=== PATIENT | male | born 1960 | race Caucasian/White ===

== ENCOUNTER 2019-01-08 15:07 | Emergency (ER) | payer MEDICARE ==
[2019-01-08] MEDS ORDERED: RX INFO: IV CONTRAST WAS GIVEN 1 EACH MISC MISCELLANE PRN (15:23)
[2019-01-08] MEDS ORDERED: SODIUM CHLORIDE 0.9% 2,000 ML IV ONE (15:24)
[2019-01-08] MEDS ORDERED: LIDOCAINE/EPINEPHR/TETRACAINE 5 ML BOTTLE TOPICAL ONE (15:24)
[2019-01-08] MEDS ORDERED: MORPHINE SULFATE 4 MG/ML SYRINGE IVP STA (15:24)
--- NOTE | 2019-01-08 15:30 | ED ---
Wound/Laceration HPI - General Chief Complaint: Wound/Laceration Stated Complaint: Laceration on chest Time Seen by Provider: 01/08/19 15:15 Source: patient, EMS, RN notes reviewed, old records reviewed Mode of arrival: EMS Limitations: no limitations - History of Present Illness Initial Comments: This Patient is a 58-year-old male who presents emergency department today after cutting piece of metal with a grinding wheel. He reports that the grinding wheel "exploded and came off. He reports a piece of the grinding wheel hit his chest. He complains of a laceration over the left anterior chest. He does report he is having some pain. He denies any pain with taking a deep breath. Patient states that he has a small abrasion over his left thigh. He denies any other injuries or arms or abdomen. - Related Data Previous Rx's Medication Instructions Recorded Cephalexin [Keflex] 500 mg PO Q6HR 3 Days #12 cap 01/08/19 Allergies Allergy/AdvReac Type Severity Reaction Status Date / Time tetanus and diphtheria Allergy Swelling Verified 01/08/19 15:26 toxoids Tetanus Vaccines and Toxoid Allergy Swelling Verified 01/08/19 15:26 Review of Systems ROS Statement: Those systems with pertinent positive or pertinent negative responses have been documented in the HPI. ROS Other: All systems not noted in ROS Statement are negative. Past Medical History Past Medical History: Hypertension History of Any Multi-Drug Resistant Organisms: None Reported Past Surgical History: Orthopedic Surgery Additional Past Surgical History / Comment(s): Left knee replacement Past Psychological History: Depression Smoking Status: Current every day smoker Past Alcohol Use History: None Reported Past Drug Use History: None Reported General Exam - General Exam Comments Initial Comments: 58-year-old male. Alert and oriented. No significant distress. Limitations: no limitations General appearance: alert, in no apparent distress Head exam: Present: atraumatic, normocephalic, normal inspection Eye exam: Present: normal appearance, PERRL, EOMI. Absent: scleral icterus, conjunctival injection, periorbital swelling ENT exam: Present: normal exam, mucous membranes moist Neck exam: Present: normal inspection. Absent: tenderness, meningismus, lymphadenopathy Respiratory exam: Present: normal lung sounds bilaterally, other (Patient has a 6cm laceration, linear over the chest wall.). Absent: respiratory distress, wheezes, rales, rhonchi, stridor Cardiovascular Exam: Present: regular rate, normal rhythm, normal heart sounds. Absent: systolic murmur, diastolic murmur, rubs, gallop, clicks GI/Abdominal exam: Present: soft, normal bowel sounds. Absent: distended, tenderness, guarding, rebound, rigid Extremities exam: Present: normal inspection, full ROM, normal capillary refill. Absent: tenderness, pedal edema, joint swelling, calf tenderness Back exam: Present: normal inspection Neurological exam: Present: alert, oriented X3, CN II-XII intact Psychiatric exam: Present: normal affect, normal mood Skin exam: Present: warm, dry, intact, normal color. Absent: rash Course Vital Signs 01/08/19 01/08/19 01/08/19 15:09 15:50 16:55 Temperature 98.6 F Pulse Rate 114 H 100 97 Respiratory 18 17 16 Rate Blood Pressure 130/78 124/86 126/87 O2 Sat by Pulse 97 99 97 Oximetry 01/08/19 01/08/19 18:10 18:23 Temperature 98.0 F 98.0 F Pulse Rate 80 80 Respiratory 18 19 Rate Blood Pressure 101/62 101/62 O2 Sat by Pulse 96 96 Oximetry - Reevaluation(s) Reevaluation #1: 01/08/19 15:[address] Kaur, patient not P1 or P2 at this time. Reevaluation #2: 01/08/19 16:28 I discussed the patient's risk and benefit have tetanus. He is stating that he's had a bad ALLERGIC reaction and causes her to swell. Discusses localized ALLERGIC reaction and I would recommend so getting a tetanus but he continues to refuse. Procedures - Laceration Laceration #1 Indication: laceration Site: chest Size (cm): 6 Description: linear Depth: involves muscle layer Anesthetic Used: lidocaine 1% Anesthesia Technique: local infiltration Amount (mls): 6 Pre-repair: wound explored, irrigated extensively Type of Sutures: nylon, vicryl Size of Sutures: 5-0 Number of Sutures: 12 Technique: simple, interrupted Patient Tolerated Procedure: well, no complications Medical Decision Making - Medical Decision Making This is a 58-year-old male presents today with chest laceration after a metal plate in his chest. Patient is 6 cm laceration. Patient's laceration was thoroughly irrigated, and closed with sutures with intermittent sutures. Nay ent at this time was given a tetanus shot. We'll put the Patient on due to the dirty wound. CT of the chest was negative for any penetrating trauma just laceration. Discussed Patient follow-up with her his PCP. Discussed monitoring for infection. - Lab Data Result diagrams: 01/08/19 15:20 01/08/19 15:20 Lab Results 01/08/19 01/08/19 01/08/19 Range/Units 15:20 15:20 15:20 WBC 8.9 (3.8-10.6) k/uL RBC 4.72 (4.30-5.90) m/uL Hgb 13.8 (13.0-17.5) gm/dL Hct 41.3 (39.0-53.0) % MCV 87.4 (80.0-100.0) fL MCH 29.3 (25.0-35.0) pg MCHC 33.5 (31.0-37.0) g/dL RDW 13.7 (11.5-15.5) % Plt Count 226 (150-450) k/uL Neutrophils % 76 % Lymphocytes % 15 % Monocytes % 5 % Eosinophils % 1 % Basophils % 1 % Neutrophils # 6.8 (1.3-7.7) k/uL Lymphocytes # 1.4 (1.0-4.8) k/uL Monocytes # 0.4 (0-1.0) k/uL Eosinophils # 0.1 (0-0.7) k/uL Basophils # 0.1 (0-0.2) k/uL PT 10.6 (9.0-12.0) sec INR 1.0 (<1.2) APTT 20.4 L (22.0-30.0) sec Sodium 140 (137-145) mmol/L Potassium 4.1 (3.5-5.1) mmol/L Chloride 102 (98-107) mmol/L Carbon Dioxide 26 (22-30) mmol/L Anion Gap 12 mmol/L BUN 25 H (9-20) mg/dL Creatinine 0.99 (0.66-1.25) mg/dL Est GFR (CKD-EPI)AfAm >90 (>60 ml/min/1.73 sqM) Est GFR (CKD-EPI)NonAf 84 (>60 ml/min/1.73 sqM) Glucose 90 (74-99) mg/dL Calcium 9.4 (8.4-10.2) mg/dL Total Bilirubin 0.6 (0.2-1.3) mg/dL AST 29 (17-59) U/L ALT 40 (21-72) U/L Alkaline Phosphatase 83 (38-126) U/L Troponin I (0.000-0.034) ng/mL Total Protein 7.5 (6.3-8.2) g/dL Albumin 4.4 (3.5-5.0) g/dL 01/08/19 Range/Units 15:26 WBC (3.8-10.6) k/uL RBC (4.30-5.90) m/uL Hgb (13.0-17.5) gm/dL Hct (39.0-53.0) % MCV (80.0-100.0) fL MCH (25.0-35.0) pg MCHC (31.0-37.0) g/dL RDW (11.5-15.5) % Plt Count (150-450) k/uL Neutrophils % % Lymphocytes % % Monocytes % % Eosinophils % % Basophils % % Neutrophils # (1.3-7.7) k/uL Lymphocytes # (1.0-4.8) k/uL Monocytes # (0-1.0) k/uL Eosinophils # (0-0.7) k/uL Basophils # (0-0.2) k/uL PT (9.0-12.0) sec INR (<1.2) APTT (22.0-30.0) sec Sodium (137-145) mmol/L Potassium (3.5-5.1) mmol/L Chloride (98-107) mmol/L Carbon Dioxide (22-30) mmol/L Anion Gap mmol/L BUN (9-20) mg/dL Creatinine (0.66-1.25) mg/dL Est GFR (CKD-EPI)AfAm (>60 ml/min/1.73 sqM) Est GFR (CKD-EPI)NonAf (>60 ml/min/1.73 sqM) Glucose (74-99) mg/dL Calcium (8.4-10.2) mg/dL Total Bilirubin (0.2-1.3) mg/dL AST (17-59) U/L ALT (21-72) U/L Alkaline Phosphatase (38-126) U/L Troponin I <0.012 (0.000-0.034) ng/mL Total Protein (6.3-8.2) g/dL Albumin (3.5-5.0) g/dL 01/08/19 15:40 EKG performed at 1530 fracture sinus tachycardia and nonspecific T-wave abnormality. Abnormal EKG. Ventricular rate of 111 bpm. SD interval is 1:30 milliseconds. QRS duration is 82 ms. QT QTc is 328/[address] elevation. - Radiology Data Radiology results: report reviewed Soft tissue laceration deformity. Minimal atelectasis in the lung bases. No fractures. CT findings show patchy atelectasis in lung bases heart size is normal. No pleural effusion or pneumothorax. No pericardial effusion no mediastinal myopathy. Thoracic aorta is intact. Upper soft abdominal tissues appear intact. Soft tissue laceration deformity at the left mid chest wall. No foreign body. Ribs are intact. Thoracic spines intact. Disposition Clinical Impression: Laceration of chest wall, Abrasion of leg, Chest wall contusion Disposition: HOME SELF-CARE Condition: Good Instructions (If sedation given, give patient instructions): Laceration (ED) Additional Instructions: Please return to the emergency room in 8-10 days to have sutures removed. Please leave wound covered for the first 24-48 hours and then leave open to air after that time. Please use clean soap and water to clean the suture area to prevent scabbing over the top of your sutures. Please watch for any signs of infection which may include but not limited to increased pain, swelling, redness, fever or chills. Please return to the emergency room if any signs of infection do occur. Please return to the emergency room for any other concerns or complications. Prescriptions: Cephalexin [Keflex] 500 mg PO Q6HR 3 Days #12 cap Is patient prescribed a controlled substance at d/c from ED?: No Referrals: Nonstaff,Physician [Primary Care Provider] - 1-2 days Yanet Ball MD [STAFF PHYSICIAN] - 1-2 days Time of Disposition: 17:38
[2019-01-08] MEDS ORDERED: LIDOCAINE 1% INJ 10MG/ML (20 ML MDV) SQ ONE (15:37)
[2019-01-08] MEDS: DIPH,PERTUS(ACELL)TETVAC-LF 0.5 ML VIAL IM ONE ×2 (15:42→16:49)
[2019-01-08 16:03] LABS: ALT 40 U/L (21-72); AST 29 U/L (17-59); African American GFR (CKD) >90 (>60 ml/min/1.73 sqM); Albumin 4.4 g/dL (3.5-5.0); Alkaline Phosphatase 83 U/L (38-126); Anion Gap 12 mmol/L; Blood Urea Nitrogen 25 mg/dL (9-20); Calcium 9.4 mg/dL (8.4-10.2); Carbon Dioxide 26 mmol/L (22-30); Chloride 102 mmol/L (98-107); Glucose 90 mg/dL (74-99); Potassium 4.1 mmol/L (3.5-5.1); Sodium 140 mmol/L (137-145); Total Bilirubin 0.6 mg/dL (0.2-1.3); Total Protein 7.5 g/dL (6.3-8.2)
--- NOTE | 2019-01-08 16:12 | CT ---
EXAMINATION TYPE: CT chest w con DATE OF EXAM: 01/08/2019 COMPARISON: None HISTORY: Patient was using a cutting wheel when it exploded, hitting him on the left side of chest. L aceration observed. CT DLP: 515.6 mGycm Automated exposure control for dose reduction was used. CONTRAST: CT scan of the chest is performed with IV Contrast, patient injected with 100 mL of Isovue 300. FINDINGS: There is some patchy atelectasis at the lung bases. Heart size is normal. There is no pleural effusio n or pneumothorax. There is no pericardial effusion. There is no mediastinal adenopathy. Thoracic aor ta appears intact. There are no hilar masses. Upper abdominal soft tissues appear intact. There is so ft tissue laceration deformity on the left mid anterior chest wall. I see no sign of a foreign body. The ribs appear intact. Thoracic spine is intact. IMPRESSION: Soft tissue laceration deformity. Minimal atelectasis at the lung bases. No fracture.
[2019-01-08 16:24] LABS: Basophils # (A) 0.1 k/uL (0-0.2); Basophils % (A) 1 %; Eosinophils # (A) 0.1 k/uL (0-0.7); Eosinophils % (A) 1 %; HCT 41.3 % (39.0-53.0); HGB 13.8 gm/dL (13.0-17.5); Lymphocytes # (A) 1.4 k/uL (1.0-4.8); Lymphocytes % (A) 15 %; MCH 29.3 pg (25.0-35.0); MCHC 33.5 g/dL (31.0-37.0); MCV 87.4 fL (80.0-100.0); Mean Platelet Volume 8.1; Monocytes # (A) 0.4 k/uL (0-1.0); Monocytes % (A) 5 %; Neutrophils # (A) 6.8 k/uL (1.3-7.7); Neutrophils % (A) 76 %; Platelet Count 226 k/uL (150-450); RBC 4.72 m/uL (4.30-5.90); RDW 13.7 % (11.5-15.5); WBC 8.9 k/uL (3.8-10.6)
[2019-01-08 16:59] LABS: Prothrombin Time 10.6 sec (9.0-12.0)
[2019-01-08 17:06] LABS: Partial Thromboplastin Time 20.4 sec (22.0-30.0)
[2019-01-08 18:24] VITALS: BP 101/62; PULSE 80; RESP 19; TEMP 98
== END 2019-01-08 18:11 | disposition home or self-care (01) ==
LOC: EC 15:07
DX: S21.112A Laceration without foreign body of left front wall of thorax without penetration into thoracic cavity, initial encounter (principal); S70.312A Abrasion, left thigh, initial encounter; F17.200 Nicotine dependence, unspecified, uncomplicated; Z88.7 Allergy status to serum and vaccine; Z23 Encounter for immunization; Z96.652 Presence of left artificial knee joint; W22.8XXA Striking against or struck by other objects, initial encounter; Y93.89 Activity, other specified; Y92.009 Unspecified place in unspecified non-institutional (private) residence as the place of occurrence of the external cause
CPT/HCPCS: 99285; 90471; 96374; 96361 ×2; 36415; 93005; 80053; 84484; 85025; 85610; 85730; 71260; 90715; J2270; J2001; Q9967

== ENCOUNTER 2022-02-20 05:57 | Day surgery (SDC) | payer MEDICARE ==
--- NOTE | 2022-02-19 09:01 | P.HPOR ---
History of Present Illness H&P Date: 02/19/22 Chief Complaint: Right knee pain The patient's a 61-year-old male who presents with progressive right knee pain for the past several years worsening recently. He is having medial pain with weightbearing activities. He is having a difficult time getting up from a seated position. He does use a cane. He's tried medications in addition to previous injections with only partial temporary relief. Review of Systems As per HPI Past Medical History Past Medical History: Hypertension, Osteoarthritis (OA) Additional Past Medical History / Comment(s): vertigo,back pain, lft upper leg muscle atrophy History of Any Multi-Drug Resistant Organisms: None Reported Past Surgical History: Hernia Repair, Orthopedic Surgery Additional Past Surgical History / Comment(s): Left knee replacement and revision Lft Knee arthroscopy x2 Lft great toe joint surgery, umbilical hernia repair Past Anesthesia/Blood Transfusion Reactions: No Reported Reaction Smoking Status: Vaper Medications and Allergies Home Medications Medication Instructions Recorded Confirmed Type ARIPiprazole 10 mg PO DAILY 02/18/22 02/18/22 History Atorvastatin [Lipitor] 40 mg PO HS 02/18/22 02/18/22 History Fluticasone Nasal [place] [Flonase 1 spray EA NOSTRIL BID 02/18/22 02/18/22 History Nasal [place]] Metoprolol Succinate (ER) [Toprol 25 mg PO DAILY 02/18/22 02/18/22 History Xl] Omeprazole 20 mg PO DAILY 02/18/22 02/18/22 History Venlafaxine HCl 75 mg PO BID 02/18/22 02/18/22 History oxyCODONE-APAP 10-325MG [Percocet 1 tab PO Q6HR PRN 02/18/22 02/18/22 History 10-325 mg] Allergies Allergy/AdvReac Type Severity Reaction Status Date / Time No Known Allergies Allergy Verified 02/19/22 08:26 Physical Examination - Knee right Appearance: ecchymosis Effusion grade: grade 2 Varus alignment in stance: 10 degrees Tenderness with palpation: medial Pain: with flexion Gait: limping ROM: extension: -10 degrees ROM: flexion: 120 degrees Crepitus with motion: Yes Strength: extension: 5/5 Strength: flexion: 5/5 Meniscal tests: medial joint line pain: positive Results The patient is a well-developed well-nourished male approximately 5 foot 11, 201 pounds of endomorphic habitus. HEENT exam is nonfocal, neck is supple. He has painless passive motion of the right hip. Straight leg raise is negative. His distal neurovascular exam appears intact right lower extremity. - Diagnostic results Knee x-ray: image reviewed (3 views the right knee obtaining office show severe medial and patellofemoral compartment narrowing with subchondral sclerosis and b one-on-bone changes.) Assessment and Plan Assessment: Right knee severe medial and patellofemoral compartment osteoarthrosis Plan: I talked to the patient at length regarding his condition along with treatment options. At this point is quite limited because of pain related to his osteoarthrosis despite conservative measures. After thorough discussion he opted to proceed with surgery. We will plan to proceed with right total knee arthroplasty. Risks and benefits were discussed at length in layman's terms. We'll institute DVT prophylaxis postoperatively. Time with Patient: Less than 30
[~2022-02-20 05:57] MED LIST: ACETAMINOPHEN TAB 500 MG TAB PO PRN; DEXAMETHASONE SOD PHOSPHATE 4 MG/ML 1 ML VIAL IV ONE; MELOXICAM 7.5 MG TAB PO PRN; MIDAZOLAM 2 MG/2 ML VIAL IV PRN; SCOPOLAMINE 1 MG/72 HR PATCH TRANSDERM ONE; TRANEXAMIC ACID IN NACL,ISO-OS 1,000 MG in SALINE 1 100ML.BAG IVPB PRN
[2022-02-20] MEDS: LACTATED RINGERS 1,000 ML IV SCH ×2 (06:38→07:48)
[2022-02-20] MEDS: ONDANSETRON 4 MG/2 ML VIAL IVP ONE ×2 (07:06→17:11)
[2022-02-20] MEDS ORDERED: PROPOFOL 10 MG/ML 20 ML VIAL IV ONE (07:47)
[2022-02-20] MEDS ORDERED: ROPIVACAINE 5 MG/ML 30 ML VIAL ONE (07:47)
[2022-02-20] MEDS ORDERED: MIDAZOLAM 2 MG/2 ML VIAL ONE (07:47)
[2022-02-20] MEDS ORDERED: SODIUM CHLORIDE 0.9% (PF) 10 ML VIAL ONE (07:47)
[2022-02-20] MEDS ORDERED: TRANEXAMIC ACID IN NACL,ISO-OS 1,000 MG/100 ML BAG ONE (07:47)
[2022-02-20] MEDS ORDERED: ceFAZolin 1,000 MG in SODIUM CHLORIDE 0.9% 1,000 ML IRRIGATION ONE (08:19)
[2022-02-20] MEDS ORDERED: ROPIVACAINE 0.2%-NS ON-Q PUMP 1,090 MG, EMPTY PAIN BALL 1 EACH MISCELLANE PRN (08:27)
--- NOTE | 2022-02-20 08:29 | P.ANPRN ---
Procedure Note - Anesthesia - Nerve Block Performed Right Adductor Canal Time Out Performed: Yes (:18) Date of Procedure: 02/20/22 Procedure Start Time: Procedure Stop Time: Location of Patient: PreOp Indication: Acute Post-Operative Pain, Requested by Surgeon (Dr Deo) Sedation Type: Sedate with meaningful contact maintained Preparation: Sterile Prep, Sterile Dressing Position: Supine Catheter: Indwelling Needle Types: Pajunk Needle Gauge: 21 Ultrasound used to visualize needle placement: Yes Ultrasound used to observe medication spread: Yes Injectate: 0.5% Ropivacaine (see comment for volume) (15cc) Blood Aspirated: No Pain Paresthesia on Injection Noted: No Resistance on Injection: Normal Image Stored and Saved: Yes Events: Uneventful and Well Tolerated
--- NOTE | 2022-02-20 08:31 | P.ANPRN ---
Procedure Note - Anesthesia - Nerve Block Performed Right iPack Time Out Performed: Yes Date of Procedure: 02/20/22 Procedure Start Time: 07:28 Procedure Stop Time: 07:34 Location of Patient: PreOp Indication: Acute Post-Operative Pain, Requested by Surgeon (Dr Doe) Sedation Type: Sedate with meaningful contact maintained Preparation: Sterile Prep Position: Supine Catheter: None Needle Types: Pajunk Needle Gauge: 21 Ultrasound used to visualize needle placement: Yes Ultrasound used to observe medication spread: Yes Injectate: 0.5% Ropivacaine (see comment for volume) (15cc +5cc PF Normal saline) Blood Aspirated: No Pain Paresthesia on Injection Noted: No Resistance on Injection: Normal Image Stored and Saved: Yes Events: Uneventful and Well Tolerated
[2022-02-20] MEDS ORDERED: NALOXONE 0.4 MG/ML 1 ML VIAL IV PRN (09:30)
[2022-02-20] MEDS ORDERED: HYDROcodone/APAP 5-325MG 1 EACH TAB PO PRN (09:30)
--- NOTE | 2022-02-20 09:56 | P.OP ---
Date of Procedure: 02/20/22 Preoperative Diagnosis: Right knee severe tricompartmental osteoarthrosis Postoperative Diagnosis: Same Procedure(s) Performed: Right total knee arthroplastycementedcruciate retaining Implants: [employer] journey 2 size 7 cemented femoral component, size 6 cemented tibial component, 9 mm articular surface, 35 mm cemented patellar component. This is a cruciate retaining implant. Anesthesia: regional, spinal Surgeon: Kalpesh Doe Sign Maintenance #1: Randy Muse Estimated Blood Loss (ml): 50 Pathology: other (Bone fragments) Condition: stable Disposition: PACU Indications for Procedure: The patient's a 61-year-old male who presents with progressive right knee pain secondary to osteoarthrosis despite conservative measures. A discussion of the risks and benefits of operative intervention versus continued conservative me asures was made with the patient. He opted to proceed with surgery. Operative risks to include infection, neurovascular injury, development of blood clots, possible component loosening/failure need for subsequent procedures was discussed. Informed consent was obtained. Operative Findings: As below Description of Procedure: The patient was brought to the operating room, and after induction of spinal anesthesia the right lower extremity was prepped and draped in a normal fashion. The tourniquet was inflated to 270 mmHg. A longitudinal incision extending 3 finger breaths above the superior pole of the patella extending to the medial aspect the tibial tubercle was then made. The skin and subcutaneous tissues were divided sharply. Electrocautery was used for hemostasis. A medial parapatellar arthrotomy was then performed. The medial soft tissues to include the superficial and deep portions of the medial collateral ligament as well as the medial hamstring tendons were elevated subperiosteally. The proximal medial tibia osteophytes were carefully removed. The patella was everted. The knee was flexed. A portion of the retropatellar fat pad was excised sharply. The anterior cruciate ligament was sacrificed. A starting hole was made in the distal femur 1 cm anterior to the posterior cruciate origin. An intramedullary femoral guide was gently inserted planning on 5 valgus distal cut with 9 mm distal resection. The cutting block was pinned in place. The distal cut was then made. The posterior referencing sizing guide was utilized. 3 of external rotation was built into the system and verified off the trans- epicondylar axis and the posterior condyles. I felt size 7 was most appropriate. The cutting block was pinned in place. The anterior, posterior, and chamfer cuts were then made. The bone fragments were removed. A sulcus cut was then made with the appropriate guide. The trial size 7 femoral component was then placed and was fully seated. There was good anterior to posterior and medial to lateral fit. The distal peg holes were then drilled. The trial component was then removed. Attention was then paid towards preparing the proximal tibia. An extra medullary guide was utilized in line with the tibial shaft and second metatarsal distally. A 3 posterior slope was planned. I jania nned on 2 mm resection from the medial compartment. The cutting block was pinned in place. The proximal tibial cut was then made. The bone was removed in one fragment. The remnants of the medial and lateral menisci were excised the capsule junction with electrocautery. The tibia sized most appropriately at size 6. The posterior osteophytes off the distal femur were carefully removed with a curved osteotome. The trial tibial and femoral components were placed along with a 9 millimeters articular surface. I was able to obtain full flexion and extension with good stability with varus and valgus stress. After several flexion and extension cycles, the tibial rotation was marked with electrocautery in line with the medial one third of the tibial tubercle. Attention was then paid towards preparing the patella. A patella reamer was utilized taking this down to 14 mm of bone stock. A good flush cut was made. The patella sized most appropriately at 35 millimeters. The peg holes were then drilled. The trial component was placed. The knee was taken through a range of motion. I had good patellofemoral tracking with no hands technique. The trial components were then removed. The tibia was prepared in the appropriate rotation with appropriate drill and keel punch. The flexion and extension gaps were checked and felt to be symmetric. The posterior soft tissues were injected with ropivacaine. The bony surfaces were prepared with pulsatile lavage and dried. The deep tibial component was then cemented in place and was fully seated. Excess cement was removed. The femoral component was cemented in place and was fully seated. Again excess cement was removed. The trial 9 millimeters surface was then inserted in the knee was put in full extension. The patella component was cemented in place. After the cement had sufficiently hardened, the knee was again taken through a range of motion. Again there was good stability in flexion and extension with varus and valgus stress. The trial articular surface was then removed. The final articular surface was placed and was impacted. Care was taken to avoid any soft tissue interposition. Pulsatile lavage was again utilized. The tourniquet was deflated with approximately 60 minutes total tourniquet time. There was minimal drainage therefore a deep drain was not placed. The medial parapatellar arthrotomy was then closed with #2 Ethibond suture. The subcutaneous tissues were reapproximated interrupted 2-0 Vicryl sutures. The skin was reapproximated with 3-0 subarticular strata fix suture. Skin tape and adhesive was applied. A sterile dressing was applied. The patient was then awoken from sedation and transferred to recovery room in good condition. Blood loss was estimated at 50 milliliters. No complications were incurred. Sponge and needle counts were correct at the end the case. Randy BROOKS assisted during the major components this case to include exposure, bone resection, and implantation.
--- NOTE | 2022-02-20 10:27 | XR ---
EXAMINATION TYPE: XR knee limited RT DATE OF EXAM: 02/20/2022 COMPARISON: 11/29/2020 HISTORY: 61-year-old male evaluation for postoperative abnormality in alignment TECHNIQUE: 2 views FINDINGS: Images show placement of right total knee arthroplasty. Both distal femoral and proximal tibial compo nents of the prosthesis are well seated without prosthetic fracture. Anterior soft tissue swelling wi th scattered soft tissue air as well as small foci of intra-articular air and small joint effusion re lated to recent operation. Alignment grossly anatomic. IMPRESSION: Uncomplicated postoperative appearance right total knee arthroplasty.
[2022-02-20] MEDS: HYDROmorphone 0.5 MG/0.5 ML SYRINGE IVP PRN ×5 (10:43→16:00)
[2022-02-20] MEDS ORDERED: KETOROLAC 15 MG/ML 1 ML VIAL IVP ONE (11:02)
[2022-02-20] MEDS ORDERED: LACTATED RINGERS 1,000 ML IV ONE (11:57)
[2022-02-20] MEDS: oxyCODONE-APAP 10-325MG 1 EACH TAB PO PRN ×2 (13:54→21:38)
[2022-02-20] MEDS: HYDROmorphone 1 MG/ML 1 ML SYRINGE IVP PRN ×2 (18:27→22:53)
[2022-02-20] MEDS: HYDROcodone/APAP 7.5-325MG 1 EACH TAB PO PRN (19:32)
[2022-02-20] MEDS ORDERED: SENNOSIDES-DOCUSATE SODIUM 1 EACH TAB PO SCH (21:00)
[2022-02-21] MEDS: HYDROcodone/APAP 7.5-325MG 1 EACH TAB PO PRN ×2 (01:05→07:15)
[2022-02-21 01:09] VITALS: RESP 17
[2022-02-21] MEDS: HYDROmorphone 1 MG/ML 1 ML SYRINGE IVP PRN ×2 (02:08→05:30)
[2022-02-21] MEDS: oxyCODONE-APAP 10-325MG 1 EACH TAB PO PRN ×2 (03:39→09:32)
--- NOTE | 2022-02-21 07:53 | P.PN ---
Progress Note - Text The patient is status post right adductor canal catheter placement. The catheter was placed for postoperative pain control, status post total right knee arthroplasty. Ropivacaine 0.2% is infusing at 8 mLs per hour. The patient has no complaints of right lower extremity numbness or weakness. Patient's VAS score is5-6-10. Patient does have some posterior knee and anterior knee pain.The catheter doesn't provide coverage to the posterior compartment of the knee. Assessment: Patient's adductor canal catheter is in place and working adequately. Plan: continue infusion and adjust it as needed.
[2022-02-21 07:55] VITALS: BP 158/84; PULSE 125; TEMP 98.9
--- NOTE | 2022-02-21 08:59 | P.PN ---
Subjective Progress Note Date: 02/21/22 Principal diagnosis: status post right total knee arthroplasty Patient evaluated at bedside. Increase in pain noted overnight, improvement this morning. Denies headaches, lightheadedness, chest pain or shortness of breath. He is urinating with no difficulties. Objective - Vital Signs Vital signs: Vital Signs Temp 98.9 F 02/21/22 07:54 Pulse 125 H 02/21/22 07:54 Resp 17 02/21/22 07:54 BP 158/84 02/21/22 07:54 Pulse Ox 94 L 02/21/22 07:54 FiO2 Intake & Output 02/20/22 02/21/22 02/21/22 18:59 06:59 18:59 Intake Total 1051 210 Output Total 50 Balance 1001 210 Weight 93.1 kg Intake: IV 1051 Intake, IV Titration 210 Amount Lactated Ringers 1,000 ml 160 @ 20 mls/hr IV .Q24H [facility] Rx#:[id number] ceFAZolin 2 gm In Sodium 50 Chloride 0.9% 50 ml @ 100 mls/hr IVPB Q8HR [facility] Rx# :[id number] Output: Estimated Blood Loss 50 Other: Voiding Method Toilet Toilet # Voids 1 6 - Exam Right lower extremity: Incision is clean, dry, and intact. The [exofin fusion tape] is in good condition. [There is minimal soft tissue swelling and ecchymosis surrounding the medial and lateral aspects of the incision.] Calf is soft, no tenderness with palpation. Plantar flexion, dorsiflexion, EHL, FHL are intact. Sensory exam to light touch throughout the extremity is intact, [dorsal pedis pulses 2+.] Assessment and Plan Assessment: Postoperative day #1 status post right total knee arthroplasty Plan: Pain control, he will resume his Percocet after discharge, also prescribed Driver 7.5 mg/325 mg DVT prophylaxis, aspirin 81 milligrams twice a day for 1 month Wound care instructions discussed, this to include icing and elevating/ showering Therapy and nursing after discharge Medical recommendations Discharge planning: Stable for discharge home today Time with Patient: Less than 30
[2022-02-21] MEDS ORDERED: RIVAROXABAN 10 MG TAB PO SCH (09:00)
--- NOTE | 2022-02-21 09:02 | P.DS ---
Providers Date of admission: 02/20/2022 Expected date of discharge: 02/21/22 Attending physician: Kalpesh Doe Consults: 02/20/22 09:33 Consult Physician Routine Consulting Provider: Donato Trevino Consult Reason/Comments: Medical Management s/p right total knee arthroplasty Do you want consulting provider notified?: Yes Primary care physician: Ivy Mark Hospital Course: Date of admission: 02/20/2022 Date of discharge: 02/21/2022 Admission diagnosis: Status post right total knee arthroplasty Discharge diagnosis: Same Attending physician: Dr. Doe Surgical procedures: Right total knee arthroplasty Brief history: Patient is a 61-year-old male with a history of progressive primary right knee osteoarthritis. At this point patient has failed conservative treatment measures and has opted to proceed with a elective right total knee arthroplasty. Hospital course: Details of patient's surgery can be found in operative report. Patient tolerated the procedure well and was subsequently transported to orthopedic floor. Patient's orthopeidc and medical care was provided daily. Patient had daily laboratory tests performed for evaluation of overall blood counts. Patient had daily physical therapy to include strengthening range of motion as well as education with walker ambulation. Patient was treated with Xarelto for their postoperative DVT prophylaxis during their inpatient stay. Patient was noted to have a relatively uneventful postoperative course. Patient reported satisfactory pain control with oral pain medications by postoperative day 0. Patient showed satisfactory progress with physical therapy. Patient moved steadily through the program and had no difficulty meeting the goals by postoperative day 1. Given patient's otherwise satisfactory course and having met physical therapy goals, plan is to discharge patient home on postoperative day 1. Discharge condition/disposition: Patient will be discharged home in stable condition. Discharge medications: Instructions are given on resumption of patient's normal daily medications per primary care recommendation, in addition patient will be prescribed Moran 7.5 mg/325 mg, aspirin 81 mg. Discharge instructions: 1. Wound care and infection precautions, keep incision dry and covered while showering, no lotions, creams, moisturizers. No soaking, tubs, pools, hottubs. Do not scrub over the incision. 2. Weight-bear as tolerated with walker / cane until follow-up. 3. Ice and elevate when necessary. Do not exceed 20 minutes per hour with ice pack. 4. Utilize compression sleeve until seen at first follow up appointment. 5. Visiting nursing care. 6. Home physical therapy including home CPM. 7. Pain meds and anticoagulants per prescription. 8. Pain medication has potential to cause constipation. Increase oral fluid and fiber intake. Contact primary care provider if you have not had a bowel movement within 48 hours after discharge 9. No anti-inflammatory medication until discussed at first post operative visit, this including Motrin, Aleve, Mobic, Diclofenac. 10. Follow up in office at 2 weeks postop with Jim Teresa PA-C/Randy Lui 11. Follow up with your primary care doctor 7-10 days after discharge. 12. Contact [facility] with any questions, . Procedures: Right total knee arthroplasty Patient Condition at Discharge: Good Plan - Discharge Summary Discharge Rx Participant: No New Discharge Prescriptions: New Aspirin [Adult Low Dose Aspirin EC] 81 mg PO BID #60 tab HYDROcodone/APAP 7.5-325MG [Moran 7.5] 1 each PO Q6HR PRN #28 tab PRN Reason: Pain No Action ARIPiprazole 10 mg PO DAILY Metoprolol Succinate (ER) [Toprol Xl] 25 mg PO DAILY Atorvastatin [Lipitor] 40 mg PO HS Fluticasone Nasal Walton [Flonase Nasal Walton] 1 spray EA NOSTRIL BID oxyCODONE-APAP 10-325MG [Percocet 10-325 mg] 1 tab PO Q6HR PRN PRN Reason: Pain Venlafaxine HCl 75 mg PO BID Omeprazole 20 mg PO DAILY Discharge Medication List ARIPiprazole 10 mg PO DAILY 02/18/22 [History] Atorvastatin [Lipitor] 40 mg PO HS 02/18/22 [History] Fluticasone Nasal Walton [Flonase Nasal Walton] 1 spray EA NOSTRIL BID 02/18/22 [History] Metoprolol Succinate (ER) [Toprol Xl] 25 mg PO DAILY 02/18/22 [History] Omeprazole 20 mg PO DAILY 02/18/22 [History] Venlafaxine HCl 75 mg PO BID 02/18/22 [History] oxyCODONE-APAP 10-325MG [Percocet 10-325 mg] 1 tab PO Q6HR PRN 02/18/22 [History] Aspirin [Adult Low Dose Aspirin EC] 81 mg PO BID #60 tab 02/21/22 [Rx] HYDROcodone/APAP 7.5-325MG [Moran 7.5] 1 each PO Q6HR PRN #28 tab 02/21/22 [Rx] Follow up Appointment(s)/Referral(s): Randy Muse, DARON [PHYSICIAN BELL CLERK] - 2 Weeks [facility],Equipment [NON-STAFF] - As Needed (Please call [facility] once home to arrange delivery of the Continuous Passive Motion (CPM) machine. ) [facility] Visiting Nurse, [NON-STAFF] - As Needed ([facility] home care will call you to schedule your in home nursing and physical therapy visits. ) Patient Instructions/Handouts: Knee Replacement (DC) Activity/Diet/Wound Care/Special Instructions: Orthopedic Discharge Instructions: 1. Wound care and infection precautions, keep incision dry and covered while showering, no lotions, creams, moisturizers. No soaking, pools, hot tubs. Do not scrub over incision. 2. Weight-bear as tolerated with walker / cane until follow-up. 3. Ice and elevate when necessary. Do not exceed 20 minutes per hour with ice pack. 4. Utilize compression sleeve until seen at first follow up appointment. 5. Pain meds and anticoagulants per prescription. 6. Pain medication has potential to cause constipation. Increase oral fluid and fiber intake. Contact primary care provider if you have not had a bowel movement within 48 hours after discharge. 7. No anti-inflammatory medication until discussed at first post operative visit, this including Motrin, Aleve, Mobic, Diclofenac. 8. Follow up in office at 2 weeks postop with Jim Teresa PA-C/Randy Muse PA-C 9. Follow up with your primary care doctor 7-10 days after discharge. 10. Contact [facility] with any questions, . Discharge Disposition: HOME WITH HOME HEALTH SERVICES
[2022-02-21 12:53] LABS: Basophils # (A) 0.02 X 10*3/uL (0.00-0.10); Basophils % (A) 0.2 %; Eosinophils # (A) 0 X 10*3/uL (0.04-0.35); Eosinophils % (A) 0 %; HCT 38.1 % (39.6-50.0); HGB 12.6 g/dL (13.0-17.0); Immature Grans, Automated 0.3 %; Lymphocytes # (A) 2.03 X 10*3/uL (0.90-5.00); Lymphocytes % (A) 18.5 %; MCH 29.4 pg (27.0-32.0); MCHC 33.1 g/dL (32.0-37.0); Mean Platelet Volume 11.3 fL (9.5-12.2); Monocytes # (A) 1.49 X 10*3/uL (0.20-1.00); Monocytes % (A) 13.6 %; NRBC Per 100 WBC 0 /100 WBCS (0.0-0.0); Neutrophils # (A) 7.42 X 10*3/uL (1.80-7.70); Neutrophils % (A) 67.4 %; Platelet Count 241 X 10*3/uL (140-440); RBC 4.28 X 10*6/uL (4.40-5.60); RDW 13.5 % (11.5-14.5); WBC 10.99 X 10*3/uL (4.50-10.00)
== END 2022-02-21 11:43 | disposition home health service (06) ==
LOC: OR 05:57 → 4SSUR 09:55 → OR 02-21 11:43
PROVIDERS: ATTEND Orthopaedic Surgery
DX: M17.11 Unilateral primary osteoarthritis, right knee (principal); G89.18 Other acute postprocedural pain; I10 Essential (primary) hypertension; R42 Dizziness and giddiness; M54.9 Dorsalgia, unspecified; M62.552 Muscle wasting and atrophy, not elsewhere classified, left thigh; Z98.890 Other specified postprocedural states; Z90.89 Acquired absence of other organs; Z79.899 Other long term (current) drug therapy; Z79.51 Long term (current) use of inhaled steroids; Z79.1 Long term (current) use of non-steroidal anti-inflammatories (NSAID)
CPT/HCPCS: 97116; 97161; 64999; 64448; 76942; 85025; 88300; 73560; 27447; C1713; C1776; J2250; J1100; J0690 ×2; J2405; J1170 ×3; J2795 ×2; J1885; J2704

== ENCOUNTER → 2024-05-15 | Outpatient (CLI) | payer MEDICARE ==
--- NOTE | 2024-05-16 10:32 | MR ---
EXAMINATION TYPE: MR lumbar spine wo con DATE OF EXAM: 05/15/2024 6:43 PM COMPARISON: None. CLINICAL INDICATION: Male, 63 years old with history of M54.16 RADICULOPATHY, LUMBAR REGION; [facility], low back pain with radiculopathy down both legs TECHNIQUE: Multi planar, multi sequence imaging was performed utilizing: T1-weighted, T2-weighted, a nd turbo inversion recovery imaging of the lumbar spine. IV Contrast: mL (None, if empty) FINDINGS: Alignment: The lumbar vertebral bodies have preserved heights and alignment. Cord: The conus medullaris and the distal spinal cord appear unremarkable with regards to their signa l intensity and morphology. Bones/Discs: Mild degeneration changes throughout the spine with osteophyte formation and facet joint arthropathy. Multilevel disc desiccation is present. No abnormal inversion recovery signal to sugges t bony edema. T12-L1: No evidence of significant spinal canal stenosis or neural foraminal stenosis. L1-L2: No evidence of significant spinal canal stenosis or neural foraminal stenosis. L2-L3: No evidence of significant spinal canal stenosis or neural foraminal stenosis. L3-L4: No evidence of significant spinal canal stenosis. Facet joint arthropathy moderate to severe b ilateral neural foraminal stenosis. L4-L5: No evidence of significant spinal canal stenosis. Facet joint arthropathy severe left and mode rate severe right neural foraminal stenosis. L5-S1: The disc has a rounded posterior morphology without significant spinal canal stenosis. Facet j oint arthropathy with moderate severe left and moderate neural foraminal stenosis. Large osteophyte Foraminal region displaces the exiting nerve. Series 601 image 3. No significant spinal canal or neural foraminal stenosis in the remainder of the visualized levels. Other findings: None. IMPRESSION: 1. No definitive evidence of disc herniation or significant spinal canal stenosis. 2. Mild disc degeneration with associated osteoarthritic changes. 3. L5-S1 large osteophyte and extra foraminal region displaces the exiting left nerve. No adenopathy are mildly filled. Additionally there is marked severe left neural foraminal stenosis at this level. 4. Facet joint arthropathy resulting in neural foraminal stenosis, worse at L3-L4 bilaterally and ri ght L4-L5 with moderate to severe and L4-L5 with severe left. [facility], , 05/16/2024 10:29 AM
== END | disposition home or self-care (01) ==
LOC: RADMRIMAIN 18:17
PROVIDERS: ATTEND Anesthesiology Pain Medicine
DX: M47.26 Other spondylosis with radiculopathy, lumbar region (principal); M48.061 Spinal stenosis, lumbar region without neurogenic claudication; M51.16 Intervertebral disc disorders with radiculopathy, lumbar region
CPT/HCPCS: 72148

== ENCOUNTER → 2024-06-03 | Outpatient (CLI) | payer MEDICARE ==
--- NOTE | 2024-06-03 13:21 | MR ---
INDICATION: Patient age:Male; 63 years old; Reason for study: M43.06 SPONDYLOLYSIS, LUMBAR REGION; [facility]. COMPARISON: MR lumbar spine 05/15/2024, CT chest 01/08/2019. TECHNIQUE: Multi planar, multi sequence imaging was performed utilizing: T1-weighted, T2-weighted, an d turbo inversion recovery imaging of the thoracic spine. The patient was not given Gadolinium. FINDINGS: The thoracic vertebral bodies have preserved heights. No spinal listhesis. Mild dextrocurvature of th e thoracic spine with apex at T7-T8. The osseous structure have normal signal intensity. No abnormal STIR signal. Thoracic spinal cord appears unremarkable. Mild multilevel disc desiccation. Eccentric right disc bulge with mild effacement of the anterior thecal sac and mild abutment of the a nterior right lateral thecal sac at T2-T3. Broad-based disc bulge with mild effacement of anterior thecal sac at T3-T4. Small central disc protrusion with mild effacement of the anterior thecal sac at T5-T6. Small central disc protrusion at T6-T7 with mild effacement of anterior thecal sac. Broad-based disc bulge with mild effacement of the anterior thecal sac at T7-T8 and T8-T9. There is m ild mass effect upon the anterior left lateral aspect of the spinal cord. Small left paracentral disc protrusion with mild effacement of anterior thecal sac at T9-T10. No significant spinal canal stenosis at the other thoracic levels. No significant neural foraminal stenosis at any thoracic level. IMPRESSION: 1. No significant spinal canal stenosis or neuroforaminal. 2. Mild multilevel degenerative disc disease as described above. 3. Mild dextrocurvature of the thoracic spine. [facility], , 06/03/2024 1:19 PM
== END | disposition home or self-care (01) ==
LOC: RADMRIMAIN 12:15
PROVIDERS: ATTEND Neurological Surgery
DX: M51.34 Other intervertebral disc degeneration, thoracic region (principal); M43.06 Spondylolysis, lumbar region
CPT/HCPCS: 72146